=== PATIENT | male | born 1950 | race Caucasian/White ===

== ENCOUNTER 2017-09-04 09:50 | Emergency (ER) | payer MEDICARE, OTHER ==
[~2017-09-04] VITALS: Ht 193 cm; Wt 90.9 kg
[~2017-09-04 09:50] MED LIST: ALLO100T PO; ASPI-482 PO; ASPI81 PO; CARV6 PO; FURO20 PO; GABA-529 PO; HYDR-3965 PO; KDUR20 PO; LANS30TA4 PO; LEVO50 PO; LISI-660 PO; LOVA20 PO; MULT1TAB70 PO; OLAN10TA6 PO; TIOT185 IH
[2017-09-04] MEDS ORDERED: TRAZ-147 PO (10:04)
[2017-09-04] MEDS ORDERED: PREG75 PO (10:04)
[2017-09-04] MEDS ORDERED: COLC0.6T67 PO (10:04)
[2017-09-04] MEDS ORDERED: TRAM50TA4 PO (10:04)
[2017-09-04] MEDS ORDERED: CIPR-278 PO (10:04)
[2017-09-04] MEDS ORDERED: RISP1 PO (10:04)
[2017-09-04] MEDS ORDERED: VITA200C75 PO (10:04)
[2017-09-04 10:13] VITALS: BP 123/71
== END 2017-09-04 10:56 | disposition home or self-care (01) ==
LOC: EMS 09:51
DX: H69.81 Other specified disorders of Eustachian tube, right ear (principal); K21.9 Gastro-esophageal reflux disease without esophagitis; I10 Essential (primary) hypertension; F17.210 Nicotine dependence, cigarettes, uncomplicated; Z88.6 Allergy status to analgesic agent
CPT/HCPCS: 99281; 99406